=== PATIENT | female | born 1980 | race Caucasian/White ===

== ENCOUNTER 2018-12-02 09:31 | Emergency (ER) | payer OTHER ==
[2018-12-02 09:33] VITALS: BMI 25.8
[2018-12-02 09:35] VITALS: BP 129/83; PULSE 75; RESP 18; TEMP 98.2; O2SAT 99
[2018-12-02] MEDS ORDERED: Lidocaine 1% Inj (20ml) IJ ONE (09:40)
[2018-12-02] MEDS ORDERED: Lidocaine Hydrochloride 1% 0 ML ONE (09:42)
[2018-12-02] MEDS ORDERED: Lidocaine 1% Inj (20ml) ONE (09:45)
[2018-12-02] MEDS ORDERED: Tdap Vaccine 0.5 ml Vial (10-64 yrs) IM ONE ×2 (09:48→10:00)
--- NOTE | 2018-12-02 10:03 | ED PDOC ---
Upper Extremity Pain/Injury Time Seen by Provider: 12/02/18 09:35 Chief Complaint (Nursing): Abnormal Skin Integrity History Per: Patient Onset/Duration Of Symptoms: Hrs (1) Current Symptoms Are (Timing): Still Present Severity: Mild Additional Complaint(s): Laceration withy knife to left index finger 1 hr prior to arrival Past Medical History Vital Signs: Last Vital Signs Temp 98.2 F 12/02/18 09:33 Pulse 75 12/02/18 09:33 Resp 18 12/02/18 09:33 BP 129/83 12/02/18 09:33 Pulse Ox 99 12/02/18 09:33 - Medical History PMH: No Chronic Diseases - Family History Family History: States: Unknown Family Hx - Allergies Allergies/Adverse Reactions: Allergies Allergy/AdvReac Type Severity Reaction Status Date / Time No Known Allergies Allergy Verified 12/02/18 09:41 Review of Systems Constitutional: Negative for: Fever Neurological: Negative for: Weakness, Numbness Physical Exam - Physical Exam Appears: Positive for: Non-toxic, No Acute Distress Skin: Positive for: Normal Color, Warm, DRY Extremity: Positive for: Other (1.5 cm laceration to distal phalanxe flexor surface. No joint involvement) - ECG O2 Sat by Pulse Oximetry: 99 Procedures - Time-Out Type of Procedure: Laceartion repair Site of Procedure: Left index finger Correct Patient: Yes Correct Procedure: Yes - Incision and Drainage I & D Procedure: sterile drapes applied - Laceration/Wound Repair Left Upper Distal Finger Wound Length (cm): 1.5 Wound's Depth, Shape: superficial Wound Explored: clean Irrigated w/ Saline (ccs): 50 Anesthesia: 1% Lidocaine Volume Anesthetic (ccs): 3 Suture Size/Type: 4:0, nylon (4) Wound Complexity: Simple Disposition - Clinical Impression Clinical Impression: Laceration - Patient ED Disposition Is Patient to be Admitted: No Counseled Patient/Family Regarding: Diagnosis, Need For Followup - Disposition Referrals: [facility] [Outside] Disposition: Routine/Home Disposition Time: 10:05 Condition: FAIR Instructions: Laceration Repair With Stitches (DC)
== END 2018-12-02 10:17 | disposition home or self-care (01) ==
LOC: H.ER 09:31
DX: S61.211A Laceration without foreign body of left index finger without damage to nail, initial encounter (principal); W26.8XXA Contact with other sharp object(s), not elsewhere classified, initial encounter; Y92.89 Other specified places as the place of occurrence of the external cause